=== PATIENT | female | born 1950 | race Caucasian/White ===

== ENCOUNTER 2018-02-27 10:02 | Outpatient (CLI) | payer MEDICARE ==
--- NOTE | 2018-02-27 11:39 | BD ---
DEXA BONE DENSITY EXAM: HISTORY: A 67-year-old postmenopausal female for screening. COMPARISON: 12/24/2016. FINDINGS: LUMBAR SPINE BMD (g/cm2) T-SCORE L1 0.774 -2.0 L2 0.733 -2.7 L3 0.765 -2.9 L4 0.776 -2.6 TOTAL L1-L4 0.762 -2.6 LEFT FEMORAL NECK 0.569 -2.5 TOTAL PROXIMAL LEFT FEMUR 0.688 -2.1 IMPRESSION: Osteoporosis. This patient has between a 6x and 7x increased risk for fracture when compared with yo radha patients with normal bone mineral density. POS: KATELIN
== END 2018-02-27 10:03 | disposition home or self-care (01) ==
LOC: BICMAMMO 10:02
PROVIDERS: ATTEND Family Medicine
DX: M81.0 Age-related osteoporosis without current pathological fracture (principal)
CPT/HCPCS: 77080

== ENCOUNTER 2018-03-11 09:41 | Outpatient (CLI) | payer MEDICARE | END 2018-03-11 09:42 | disposition home or self-care (01) | LOC: BICMAMMO 09:41 | PROVIDERS: ATTEND Family Medicine | DX: Z12.31 Encounter for screening mammogram for malignant neoplasm of breast (principal); R92.1 Mammographic calcification found on diagnostic imaging of breast; Z80.3 Family history of malignant neoplasm of breast | CPT/HCPCS: 77063; 77067 ==

== ENCOUNTER 2019-11-19 09:40 | Outpatient (CLI) | payer MEDICARE ==
--- NOTE | 2019-11-19 10:28 | BD ---
EXAM: DEXA bone density examination HISTORY: 69-year-old postmenopausal female for screening COMPARISON: 02/19/2018 FINDINGS: L1--bone mineral density 0.844 g/sq cm; T score -1.3 L2--bone mineral density 0.820 g/sq cm; T score -1.9 L3--bone mineral density 0.864 g/sq cm; T score -2.0 L4--bone mineral density 0.935 g/sq cm; T score -1.1 Total L1-L4--bone mineral density 0.867 g/sq cm; T score -1.6 Left femoral neck--bone mineral density0.562; T score -2.6 Total proximal left femur--bone mineral density 0.746; T score -1.6 IMPRESSION: Osteoporosis. When compared to the prior examination, the bone density in the spine has i ncreased approximately 14% and the bone density in the hip has increased 8%.
--- NOTE | 2019-11-19 10:31 | MMO ---
Bilateral MAMMO Bilat Screen [facility]. CLINICAL HISTORY: Patient is 69 years old and is seen for screening. The patient has the following family history of breast cancer: sister, 40'S. The patient has a history of bilateral Implants at age 49. VIEWS: The views performed were: bilateral craniocaudal with tomosynthesis and bilateral mediolateral oblique with tomosynthesis. FILMS COMPARED: The present examination has been compared to prior imaging studies performed at [facility] on 10/14/2014, 11/20/2015, 12/24/2016 and 03/11/2018. This study has been interpreted with the assistance of computer-aided detection. MAMMOGRAM FINDINGS: There are scattered fibroglandular densities. There are no suspicious masses, suspicious calcifications, or new areas of architectural distortion. Normal implants are present. IMPRESSION: THERE IS NO MAMMOGRAPHIC EVIDENCE OF MALIGNANCY. A ROUTINE FOLLOW-UP MAMMOGRAM IN 1 YEAR IS RECOMMENDED. THE RESULTS OF THIS EXAM WERE SENT TO THE PATIENT. ACR BI-RADS Category 1 - Negative MAMMOGRAPHY NOTE: 1. A negative mammogram report should not delay a biopsy if a dominant of clinically suspicious mass is present. 2. Approximately 10% to 15% of breast cancers are not detected by mammography. 3. Adenosis and dense breasts may obscure an underlying neoplasm. Reported by: ADRIANO SALINAS MD Electonically Signed: [id number]
== END 2019-11-19 09:41 | disposition home or self-care (01) ==
LOC: BICMAMMO 09:40
PROVIDERS: ATTEND Family Medicine
DX: Z12.31 Encounter for screening mammogram for malignant neoplasm of breast (principal); M81.0 Age-related osteoporosis without current pathological fracture; M85.88 Other specified disorders of bone density and structure, other site; Z98.82 Breast implant status; Z80.3 Family history of malignant neoplasm of breast
CPT/HCPCS: 77063; 77067; 77080

== ENCOUNTER 2020-11-21 07:54 | Outpatient (CLI) | payer MEDICARE | END 2020-11-21 07:55 | disposition home or self-care (01) | LOC: BICMAMMO 07:54 | PROVIDERS: ATTEND Family Medicine | DX: Z12.31 Encounter for screening mammogram for malignant neoplasm of breast (principal); M81.0 Age-related osteoporosis without current pathological fracture; M85.89 Other specified disorders of bone density and structure, multiple sites; Z80.3 Family history of malignant neoplasm of breast; Z98.82 Breast implant status | CPT/HCPCS: 77063; 77067; 77080 ==